=== PATIENT | female | born 1965 | race Hispanic/Latino ===

== ENCOUNTER → 2021-03-10 | Day surgery (SDC) | payer BC ==
[~2021-03-10] MED LIST: CITALOPRAM HBR20 MG PO; FAMOTIDINE20 MG PO; IBUPROFEN400 MG PO; MULTI-VITAMIN1 EACH PO; OR PHACO EYE KIT ONE; PREOP PHACO EYE KIT ONE; ZYRTEC10 M3 PO
[2021-03-10 15:20] VITALS: BP 118/84
== END | disposition home or self-care (01) ==
LOC: OR 12:43 → EDSEX 16:30
PROVIDERS: ATTEND Ophthalmology
DX: H25.11 Age-related nuclear cataract, right eye (principal); N39.0 Urinary tract infection, site not specified; M19.90 Unspecified osteoarthritis, unspecified site; M54.9 Dorsalgia, unspecified; K21.9 Gastro-esophageal reflux disease without esophagitis; Z20.822 Contact with and (suspected) exposure to COVID-19; Z91.013 Allergy to seafood
CPT/HCPCS: 66984; U0002